=== PATIENT | female | born 1950 | race Two or more races ===

== ENCOUNTER 2022-07-02 07:18 | Outpatient (CLI) | payer OTHER ==
[~2022-07-02 07:18] MED LIST: EVISTA60 MG PO
== END 2022-07-02 07:31 | disposition home or self-care (01) ==
LOC: NUCLEAR 07:18
PROVIDERS: ATTEND Internal Medicine Cardiovascular Disease
DX: I20.9 Angina pectoris, unspecified (principal); E78.00 Pure hypercholesterolemia, unspecified; I10 Essential (primary) hypertension
CPT/HCPCS: 78452; 93017; A9500; J0153

== ENCOUNTER 2023-02-25 09:00 | Outpatient (CLI) | payer OTHER | END 2023-02-25 09:07 | disposition home or self-care (01) | LOC: RAD 09:00 | PROVIDERS: ATTEND Surgery | DX: D50.9 Iron deficiency anemia, unspecified (principal); C18.3 Malignant neoplasm of hepatic flexure; R10.13 Epigastric pain ==

== ENCOUNTER → 2023-02-25 09:43 | Outpatient (CLI) | payer OTHER ==
[2023-02-25 11:26] LABS: URINE APPEARANCE Clear; URINE BILIRRUBIN Negative (NEGATIVE); URINE BLOOD Negative; URINE COLOR Yellow; URINE GLUCOSE Negative (NEGATIVE); URINE LEUKOCYTE Small; URINE NITRATE Negative; URINE PROTEIN Negative (NEGATIVE); URINE UROBILINOGEN 0.2 E.U./dl
[2023-02-25 11:29] LABS: HEMATOCRIT 31.6 % (36.0-45.00); HEMOGLOBIN 10.6 g/dL (12.0-15.00); MEAN CELL VOLUME 90.9 fL (80.00-100.00); MEAN CORPUSCULAR HEMOGLOBIN 30.4 pg (27.00-32.0); MEAN CORPUSCULAR HGB CONC 33.5 g/dl (32.0-36.0); PLATELET COUNT 240 K/uL (150-450); RED BLOOD COUNT 3.48 M/uL (4.00-6.00)
[2023-02-25 11:30] LABS: URINE BACTERIA 47.8 uL (0.0-1933); URINE EPITHELIAL CELLS 5.5 uL (0.0-38.8); URINE RBC 8.4 uL (0.0-20.8); URINE WBC 10.1 uL (0.0-23.2)
[2023-02-25 11:58] LABS: INR 0.99; PARTIAL THROMBOPLASTIN TIME 30.5 SECONDS (22.0-34.0); PROTHROMBIN TIME 10.4 SECONDS (9.0-11.5)
[2023-02-25 12:07] LABS: ALBUMIN 3.4 gm/dL (3.4-5.0); BILIRUBIN TOTAL 0.46 mg/dL (0.3-1.2); CALCIUM 9.6 mg/dL (8.5-10.1); CREATININE SERUM 0.63 mg/dL (0.55-1.02); GFR 92.63; GLOBULINA 3.1 G/DL (2.4-3.5); POTASSIUM 4.32 mEq/L (3.5-5.1); TOTAL PROTEIN 6.5 gm/dL (6.4-8.2)
== END | disposition home or self-care (01) ==
LOC: LAB 09:43
PROVIDERS: ATTEND Surgery
DX: D50.9 Iron deficiency anemia, unspecified (principal); C18.3 Malignant neoplasm of hepatic flexure; R10.13 Epigastric pain

== ENCOUNTER 2023-03-04 09:15 | Inpatient (IN) | payer OTHER ==
[~2023-03-04] VITALS: Ht 157.5 cm; Wt 66.2 kg
[2023-03-04] MEDS ORDERED: HYZAAR 50-12.51 EACH (13:40)
[2023-03-11] MEDS ORDERED: LABETALOL HCL200 MG (07:57)
[2023-03-11] MEDS ORDERED: IRO-PLEX LIQUI120 ML (07:59)
[2023-03-11] MEDS ORDERED: VITAMIN B-121000 MC4 (08:00)
[2023-03-11] MEDS ORDERED: FOLIC ACID0.8 M1 (08:00)
[2023-03-11 11:25] LABS: HEMATOCRIT 31.8 % (36.0-45.00); HEMOGLOBIN 10.7 g/dL (12.0-15.00); MEAN CELL VOLUME 93.3 fL (80.00-100.00); MEAN CORPUSCULAR HEMOGLOBIN 31.4 pg (27.00-32.0); MEAN CORPUSCULAR HGB CONC 33.6 g/dl (32.0-36.0); PLATELET COUNT 240 K/uL (150-450); RED BLOOD COUNT 3.41 M/uL (4.00-6.00); RED CELL DISTRIBUTION WIDTH 17.3 % (11.5-14.5)
[2023-03-11 12:11] LABS: ALBUMIN 3.3 gm/dL (3.4-5.0); CALCIUM 9.5 mg/dL (8.5-10.1); CREATININE SERUM 0.79 mg/dL (0.55-1.02); GFR 71.34; PHOSPHOROUS 4.2 mg/dL (2.5-4.9); POTASSIUM 3.97 mEq/L (3.5-5.1)
[2023-03-12 06:26] LABS: HEMATOCRIT 30.4 % (36.0-45.00); HEMOGLOBIN 10.5 g/dL (12.0-15.00); MEAN CELL VOLUME 92.1 fL (80.00-100.00); MEAN CORPUSCULAR HEMOGLOBIN 31.8 pg (27.00-32.0); MEAN CORPUSCULAR HGB CONC 34.5 g/dl (32.0-36.0); PLATELET COUNT 227 K/uL (150-450); RED CELL DISTRIBUTION WIDTH 17.6 % (11.5-14.5)
[2023-03-12 06:53] LABS: CREATININE SERUM 0.7 mg/dL (0.55-1.02); GFR 82.02; MAGNESIUM 1.8 mg/dL (1.8-2.4); PHOSPHOROUS 3.4 mg/dL (2.5-4.9); POTASSIUM 3.31 mEq/L (3.5-5.1)
[2023-03-12 09:55] LABS: ABG PH 7.432 (7.35-7.45); ABG PO2 72.6 mmHg (80-100); BASE EXCESS 2.7 mmol/l; BICARBONATE 27.4 mmol/l (23-25); Tco2 28.6 mmol/l; allen test SATISFACTORY; o2 21 %; puncture site RADIAL RIGHT
[2023-03-13 08:16] LABS: HEMATOCRIT 28.7 % (36.0-45.00); HEMOGLOBIN 9.9 g/dL (12.0-15.00); MEAN CELL VOLUME 92.6 fL (80.00-100.00); MEAN CORPUSCULAR HEMOGLOBIN 31.9 pg (27.00-32.0); MEAN CORPUSCULAR HGB CONC 34.4 g/dl (32.0-36.0); PLATELET COUNT 202 K/uL (150-450); RED CELL DISTRIBUTION WIDTH 16.7 % (11.5-14.5)
[2023-03-13 09:12] LABS: CALCIUM 8.9 mg/dL (8.5-10.1); CREATININE SERUM 0.59 mg/dL (0.55-1.02); GFR 99.91; MAGNESIUM 2.1 mg/dL (1.8-2.4); PHOSPHOROUS 2.2 mg/dL (2.5-4.9); POTASSIUM 3.57 mEq/L (3.5-5.1)
[2023-03-14] MEDS ORDERED: INTESTINEX680 M1 PO (15:43)
[2023-03-14] MEDS ORDERED: LEVSIN/SL0.125 MG SL (15:44)
== END 2023-03-14 17:05 | disposition home or self-care (01) | DRG 331 ==
LOC: O/R 03-11 05:25 → SURH 03-11 07:00
PROVIDERS: Internal Medicine Geriatric Medicine; ADMIT Surgery; ATTEND Surgery
PROC: 07BB4ZZ Excision of Mesenteric Lymphatic, Percutaneous Endoscopic Approach (ICD-10-PCS; 2023-03-11)
PROC: 0DTF4ZZ Resection of Right Large Intestine, Percutaneous Endoscopic Approach (ICD-10-PCS; principal; 2023-03-11 07:00)
PROC: 3E0F7GC Introduction of Other Therapeutic Substance into Respiratory Tract, Via Natural or Artificial Opening (ICD-10-PCS; 2023-03-12)
DX: C18.3 Malignant neoplasm of hepatic flexure (principal); I11.9 Hypertensive heart disease without heart failure; E78.5 Hyperlipidemia, unspecified

== ENCOUNTER 2023-04-15 05:59 | Day surgery (SDC) | payer OTHER ==
[2023-04-08 09:59] LABS: PH,URINE 5.5 (5.0-8.0); URINE APPEARANCE Clear; URINE BILIRRUBIN Negative (NEGATIVE); URINE BLOOD Negative; URINE COLOR Yellow; URINE GLUCOSE Negative (NEGATIVE); URINE LEUKOCYTE Negative; URINE NITRATE Negative; URINE PROTEIN Negative (NEGATIVE); URINE UROBILINOGEN 0.2 E.U./dl
[2023-04-08 10:01] LABS: URINE BACTERIA 17.6 uL (0.0-1933); URINE EPITHELIAL CELLS 3.2 uL (0.0-38.8); URINE RBC 8.3 uL (0.0-20.8); URINE WBC 5.8 uL (0.0-23.2)
[2023-04-08 10:04] LABS: HEMATOCRIT 34.8 % (36.0-45.00); HEMOGLOBIN 11.8 g/dL (12.0-15.00); MEAN CELL VOLUME 92.9 fL (80.00-100.00); MEAN CORPUSCULAR HEMOGLOBIN 31.4 pg (27.00-32.0); MEAN CORPUSCULAR HGB CONC 33.8 g/dl (32.0-36.0); PLATELET COUNT 233 K/uL (150-450); RED BLOOD COUNT 3.75 M/uL (4.00-6.00)
[2023-04-08 10:29] LABS: ALBUMIN 3.7 gm/dL (3.4-5.0); BILIRUBIN TOTAL 0.52 mg/dL (0.3-1.2); CALCIUM 10.3 mg/dL (8.5-10.1); CREATININE SERUM 0.61 mg/dL (0.55-1.02); GFR 96.14; POTASSIUM 3.79 mEq/L (3.5-5.1); TOTAL PROTEIN 6.7 gm/dL (6.4-8.2)
[2023-04-08 10:35] LABS: INR 1.01; PARTIAL THROMBOPLASTIN TIME 29.9 SECONDS (22.0-34.0); PROTHROMBIN TIME 10.6 SECONDS (9.0-11.5)
[~2023-04-15 05:59] MED LIST changes: +FOLIC ACID0.8 M1; +HYZAAR 50-12.51 EACH; +INTESTINEX680 M1 PO; +IRO-PLEX LIQUI120 ML; +LABETALOL HCL200 MG; +LEVSIN/SL0.125 MG SL; +VITAMIN B-121000 MC4
[2023-04-15] MEDS ORDERED: CEFAZOLIN SODIUM 1,000 MG VIAL ONE (07:35)
[2023-04-15] MEDS ORDERED: LIDOCAINE HCL 1% 200MG/20ML VIAL IJ ONE (08:00)
[2023-04-15] MEDS ORDERED: BUPIVACAINE HCL/PF 0.5% 30ML ML ONE (08:00)
[2023-04-15] MEDS ORDERED: HEPARIN SODIUM,PORCINE 500 UNITS/5 ML VIAL IV ONE ×2 (08:00→09:30)
[2023-04-15] MEDS ORDERED: CEFAZOLIN SODIUM 1,000 MG VIAL IV ONE (09:30)
[2023-04-15] MEDS ORDERED: LIDOCAINE HCL 1%/Epi 20ML VIAL IJ ONE (09:30)
[2023-04-15] MEDS ORDERED: BUPIVACAINE HCL 30 ML VIAL IJ ONE (09:30)
[2023-04-15] MEDS ORDERED: TRAM1TAB98 PO (09:43)
== END 2023-04-15 11:55 | disposition home or self-care (01) ==
LOC: CIR.AMB 05:59
PROVIDERS: ATTEND Surgery
DX: C18.9 Malignant neoplasm of colon, unspecified (principal); E78.5 Hyperlipidemia, unspecified; I11.9 Hypertensive heart disease without heart failure; Z20.822 Contact with and (suspected) exposure to COVID-19